=== PATIENT | female | born 1980 | race Caucasian/White ===

== ENCOUNTER 2017-06-23 17:54 | Emergency (ER) | payer MEDICAID, OTHER ==
[~2017-06-23] VITALS: Ht 154.9 cm; Wt 77.3 kg
[~2017-06-23 17:54] MED LIST: CLON-529 PO; DIVA500T7 PO; GABA-532 PO
[2017-06-23] MEDS ORDERED: normal saline 1000ML IV soln IVB ONE (18:40)
[2017-06-23 18:49] LABS: BASOPHILS % (AUTO) 0.4 % (0-1); EOSINOPHILS # (AUTO) 0.1 X10'3 (0-0.9); EOSINOPHILS % (AUTO) 0.7 % (0-6); HEMATOCRIT 43.5 % (35.0-45.0); HEMOGLOBIN 14.7 g/dl (12.0-16.0); LYMPHOCYTES % (AUTO) 49.6 % (21-51); MEAN CORPUSCULAR HEMOGLOBIN 31.3 PG (27.0-31.0); MEAN CORPUSCULAR HGB CONC 33.7 % (33.0-36.5); MEAN CORPUSCULAR VOLUME 92.8 FL (78-98); MONOCYTES # (AUTO) 0.3 X10'3 (0-0.9); MONOCYTES % (AUTO) 4.3 % (2-12); NEUTROPHILS # (AUTO) 3.6 X10'3 (1.8-7.7); PLATELET COUNT 259 X10'3 (140-440); RED BLOOD COUNT 4.69 X10'6 (4.20-5.60); RED CELL DISTRIBUTION WIDTH 15.3 % (11.5-14.5)
[2017-06-23 19:12] LABS: ALANINE AMINOTRANSFERASE 22 U/L (12-78); ALBUMIN 3.6 G/DL (3.4-5.0); ALKALINE PHOSPHATASE 102 IU/L (46-116); ANION GAP 16 (8-16); ASPARTATE AMINO TRANSFERASE 29 U/L (10-37); BILIRUBIN,TOTAL 0.2 MG/DL (0.1-1.0); BLOOD UREA NITROGEN 10 MG/DL (7-18); BUN/CREATININE RATIO 12.5 (6.6-38.0); CALCIUM 8.2 MG/DL (8.5-10.1); CHLORIDE 107 MMOL/L (99-107); GLUCOSE 91 MG/DL (70-104); POTASSIUM 3.7 MMOL/L (3.5-5.1); SODIUM 146 MMOL/L (135-145); TOTAL CARBON DIOXIDE 23.4 MMOL/L (24-32); TOTAL PROTEIN 7.3 G/DL (6.4-8.2); eGFR 81 ML/MIN
[2017-06-23 19:15] LABS: ETHANOL 0.347 GM/DL (0.0-0.010)
[2017-06-23] MEDS ORDERED: CLON-529 PO (22:47)
[2017-06-23] MEDS ORDERED: GABA-532 PO (22:47)
[2017-06-23] MEDS ORDERED: DIVA500T7 PO ×3 (22:47→23:30)
[2017-06-23] MEDS ORDERED: ibuprofen 200mg tablet PO ONE (23:25)
[2017-06-23] MEDS: Potassium Cl inj 20 MEQ, magnesium sulf injection 2 GM, folic acid inj. 1 MG, thiamine ... IV ONE ×6 (23:27)
[2017-06-23] MEDS ORDERED: nicotine 7mg patch - 24hr TD ONE (23:30)
[2017-06-23] MEDS ORDERED: dextrose 50%-water 50ml dispensing syringe IV PRN (23:30)
[2017-06-23] MEDS ORDERED: DIVA500T4 PO (23:43)
[2017-06-24] MEDS ORDERED: thiamine 100mg/ml 2ml inj. IV ONE (00:25)
[2017-06-24] MEDS ORDERED: acetaminophen 325mg tablet PO PRN (00:45)
[2017-06-24] MEDS: LORazepam 1 MG tablet PO PRN ×2 (00:59→07:50)
[2017-06-24] MEDS ORDERED: cloNIDine 0.1 mg tablet PO PRN (02:50)
[2017-06-24] MEDS ORDERED: nicotine 7mg patch - 24hr TD ONE (07:00)
[2017-06-24] MEDS: divalproex sod 250mg ER (24-hour) tablet PO SCH (07:50)
[2017-06-24] MEDS: gabapentin 300mg capsule PO SCH ×2 (07:50→13:00)
[2017-06-24] MEDS ORDERED: Potassium Cl inj 20 MEQ, magnesium sulf injection 2 GM, folic acid inj. 1 MG, thiamine ... IV ONE ×6 (08:00)
[2017-06-24] MEDS ORDERED: divalproex sod 250mg ER (24-hour) tablet PO SCH (08:00)
[2017-06-24] MEDS ORDERED: magnesium oxide 400mg tablet PO ONE (08:10)
[2017-06-24 08:21] LABS: URINE HCG NEGATIVE (NEG)
[2017-06-24 08:42] LABS: URINE AMPHETAMINE SCREEN NEGATIVE (Neg); URINE BARBITUATE SCREEN NEGATIVE (Neg); URINE BENZODIAZEPINES SCREEN NEGATIVE (Neg); URINE CANNABINOID SCREEN NEGATIVE (Neg); URINE COCAINE SCREEN NEGATIVE (Neg); URINE METHADONE SCREEN NEGATIVE (Neg); URINE OPIATE SCREEN NEGATIVE (Neg); URINE PHENCYCLIDINE SCREEN NEGATIVE (Neg)
[2017-06-24] MEDS ORDERED: naproxen 500mg tablet PO ONE (10:10)
[2017-06-24] MEDS ORDERED: chlordiazePOXIDE 25mg capsule PO ONE (10:10)
[2017-06-24] MEDS ORDERED: ketorolac trometh. 30mg/ml inj. IV ONE (10:20)
[2017-06-24] MEDS ORDERED: diphenhydrAMINE 50 mg/ml inj IV ONE (15:20)
[2017-06-24] MEDS ORDERED: proCHLORperazine 10 MG/2 ml inj IV ONE (15:20)
[2017-06-25] MEDS: divalproex sod 250mg ER (24-hour) tablet PO SCH (08:59)
[2017-06-25] MEDS ORDERED: ketorolac tromethamine 15mg/ml inj. IV ONE (10:05)
[2017-06-25] MEDS ORDERED: ketorolac trometh inj. 60 MG/2 ML VIAL IM ONE (10:10)
[2017-06-25] MEDS: LORazepam 1 MG tablet PO PRN (13:14)
[2017-06-25] MEDS: LORazepam 2 mg/ml vial IV PRN ×3 (15:31→20:25)
[2017-06-25] MEDS ORDERED: diphenhydrAMINE 50 mg/ml inj IV ONE (19:55)
[2017-06-25] MEDS ORDERED: nicotine 7mg patch - 24hr TD ONE (19:55)
[2017-06-25] MEDS ORDERED: dexamethasone 4mg/ml inj IV ONE (21:50)
[2017-06-25] MEDS ORDERED: ketorolac trometh. 30mg/ml inj. IV ONE (21:50)
[2017-06-25] MEDS ORDERED: magnesium 1 gm/2ml inj. 1 GM in normal saline 50ml IV soln 48 ML IV ONE ×5 (21:50→23:00)
[2017-06-25] MEDS ORDERED: normal saline 1000ml 1,000 ML IV ONE (21:50)
[2017-06-25] MEDS ORDERED: acetaminophen 325mg tablet PO ONE (21:50)
[2017-06-25] MEDS ORDERED: aspirin 325mg tablet PO ONE (21:50)
[2017-06-25] MEDS ORDERED: metoclopramide 5 mg/ml inj IV ONE (21:50)
[2017-06-25] MEDS ORDERED: magnesium 2GM in 50ml NS 50 ML IV ONE (23:05)
[2017-06-26] MEDS: LORazepam 2 mg/ml vial IV PRN ×4 (03:17→21:16)
[2017-06-26] MEDS: divalproex sod 250mg ER (24-hour) tablet PO SCH (08:03)
[2017-06-26] MEDS ORDERED: hydrOXYzine 10MG/5ML oral syrup 120ml PO PRN (10:30)
[2017-06-26] MEDS ORDERED: hydrOXYzine 25 MG tablet PO PRN (11:55)
[2017-06-26] MEDS ORDERED: clonazePAM 1mg tablet PO ONE (17:10)
[2017-06-26] MEDS ORDERED: quetiapine 100mg tablet PO SCH (21:00)
[2017-06-27 05:30] VITALS: BP 113/68
[2017-06-27] MEDS ORDERED: depakote PO (08:00)
[2017-06-27] MEDS ORDERED: DIVA500T2 PO ×2 (08:00→08:07)
[2017-06-27] MEDS: divalproex sod 250mg ER (24-hour) tablet PO SCH (08:04)
== END 2017-06-27 08:35 | disposition home or self-care (01) ==
LOC: ER 17:55
DX: R45.851 Suicidal ideations (principal); F32.9 Major depressive disorder, single episode, unspecified; F10.229 Alcohol dependence with intoxication, unspecified; G43.909 Migraine, unspecified, not intractable, without status migrainosus; Z88.0 Allergy status to penicillin; Z88.5 Allergy status to narcotic agent
CPT/HCPCS: 36415; 80053; 80305; 80320; 81025; 82948; 83735; 84443; 85025; 93005; 96361; 96365; 96366; 96367; 96375; 96376; 99285; J0780; J1100; J1200; J1885; J2060; J2765; J3411; J3475; J3480; J3490; J7030

== ENCOUNTER 2019-11-11 00:33 | Emergency (ER) | payer MEDICAID, OTHER ==
[~2019-11-11] VITALS: Ht 154.9 cm; Wt 80.9 kg
[~2019-11-11 00:33] MED LIST changes: +DIVA500T2 PO; -DIVA500T7 PO; +depakote PO
[2019-11-11] MEDS ORDERED: diphenhydrAMINE 50 mg/ml inj IV ONE (00:35)
[2019-11-11] MEDS ORDERED: LORazepam 2 mg/ml vial IV ONE ×2 (00:35→00:55)
[2019-11-11] MEDS ORDERED: metoclopramide 5 mg/ml inj IV ONE (00:35)
[2019-11-11] MEDS ORDERED: normal saline 1000ML IV soln IVB ONE ×2 (00:35)
[2019-11-11 01:04] LABS: BASOPHILS # (AUTO) 0.1 X10'3 (0-0.2); BASOPHILS % (AUTO) 0.3 % (0-1); EOSINOPHILS # (AUTO) 0.1 X10'3 (0-0.9); EOSINOPHILS % (AUTO) 0.3 % (0-6); HEMOGLOBIN 11.3 g/dl (12.0-16.0); MEAN CORPUSCULAR HGB CONC 32.2 g/dL (33.0-36.5); MEAN CORPUSCULAR VOLUME 80.7 FL (78-98); MEAN PLATELET VOLUME 8.8 FL (7.4-10.4); MONOCYTES # (AUTO) 0.6 X10'3 (0-0.9); MONOCYTES % (AUTO) 3.4 % (2-12); NEUTROPHILS # (AUTO) 13.9 X10'3 (1.8-7.7); PLATELET COUNT 313 X10'3 (140-440); RED BLOOD COUNT 4.33 X10'6 (4.20-5.60); RED CELL DISTRIBUTION WIDTH 17.4 % (11.5-14.5); WHITE BLOOD COUNT 16.6 X10'3 (4.5-11.0)
[2019-11-11 01:12] LABS: ALANINE AMINOTRANSFERASE 28 U/L (12-78); ALBUMIN 3.6 G/DL (3.4-5.0); ALBUMIN/GLOBULIN RATIO 1.1 (1.1-1.5); ALKALINE PHOSPHATASE 124 IU/L (46-116); ANION GAP 11 (8-16); ASPARTATE AMINO TRANSFERASE 25 U/L (10-37); BILIRUBIN,TOTAL 0.2 MG/DL (0.1-1.0); BLOOD UREA NITROGEN 18 MG/DL (7-18); BUN/CREATININE RATIO 18.8 (6.6-38.0); CALCIUM 8.9 MG/DL (8.5-10.1); CHLORIDE 108 MMOL/L (99-107); CREATININE 0.96 MG/DL (0.40-0.90); LIPASE 443 U/L (73-393); POTASSIUM 3.8 MMOL/L (3.5-5.1); SODIUM 143 MMOL/L (135-145); TOTAL CARBON DIOXIDE 24.1 MMOL/L (24-32); eGFR 65 ML/MIN
--- NOTE | 2019-11-11 01:13 | NUR ---
Call Sherley at when pt. 20 minutes from discharge
[2019-11-11 01:14] LABS: GLUCOSE 118 MG/DL (70-104)
[2019-11-11 01:57] LABS: URINE HCG NEGATIVE (NEG)
[2019-11-11 02:09] LABS: COLOR,URINE YELLOW (Yellow); GLUCOSE, URINE NEGATIVE (Neg); KETONES,URINE 15 mg/dl (Neg); LEUKOCYTE ESTERASE ,URINE NEGATIVE (Neg); NITRITES, URINE NEGATIVE (Neg); OCCULT BLOOD,URINE NEGATIVE (Neg); PROTEIN,URINE NEGATIVE (Neg); UROBILINOGEN,URINE 0.2 E.U/dL (0.2-1.0)
[2019-11-11] MEDS ORDERED: ketorolac trometh. 30mg/ml inj. IV ONE (02:10)
[2019-11-11 02:17] LABS: CLARITY,URINE SLIGHTLY CLOUDY (Clear); UA COLLECTION TYPE CLN CATCH MIDSTREAM
[2019-11-11 02:18] LABS: BACTERIA,URINE 4+ /HPF (Neg); RBC,URINE 0-2 /HPF (0-2); SQUAMOUS EPITHELIAL CELL,UR FEW /LPF (FEW)
[2019-11-11 02:19] LABS: MUCUS STRANDS FEW /LPF (Neg)
[2019-11-11] MEDS ORDERED: ONDA4TAB12 PO (02:37)
[2019-11-11 02:53] VITALS: BP 106/75
== END 2019-11-11 02:54 | disposition home or self-care (01) ==
LOC: ER 00:33
DX: R10.11 Right upper quadrant pain (principal); R10.32 Left lower quadrant pain; R11.2 Nausea with vomiting, unspecified; G43.909 Migraine, unspecified, not intractable, without status migrainosus; F41.9 Anxiety disorder, unspecified; F31.9 Bipolar disorder, unspecified; F17.210 Nicotine dependence, cigarettes, uncomplicated; F14.90 Cocaine use, unspecified, uncomplicated; Z88.0 Allergy status to penicillin; Z90.49 Acquired absence of other specified parts of digestive tract; Z98.51 Tubal ligation status; Z88.5 Allergy status to narcotic agent; Z88.8 Allergy status to other drugs, medicaments and biological substances; Z79.899 Other long term (current) drug therapy
CPT/HCPCS: 36415; 80053; 81001; 81025; 83690; 85025; 87077; 87088; 87186; 96361; 96374; 96375; 99284; J1200; J1885; J2060; J2765; J7030

== ENCOUNTER 2020-08-27 13:49 | Emergency (ER) | payer BC, MEDICAID ==
[~2020-08-27 13:49] MED LIST changes: +ONDA4TAB12 PO
--- NOTE | 2020-08-27 14:37 | NUR ---
SECOND CALL, NOT IN LOBBY
--- NOTE | 2020-08-27 14:48 | NUR ---
NOT IN LOBBY
== END 2020-08-27 14:49 | disposition left against medical advice (07) ==
LOC: ER 13:50
DX: M54.2 Cervicalgia (principal); Z53.21 Procedure and treatment not carried out due to patient leaving prior to being seen by health care provider